=== PATIENT | male | born 1950 | race Hispanic/Latino ===

== ENCOUNTER → 2017-08-13 | Outpatient (CLI) | payer OTHER ==
--- NOTE | 2017-08-13 12:37 | Diagnostic Imaging Report ---
CORRECTION Corrected on: 08/13/2017; Dictated by: Dilshad Colbert M.D. on 08/13/2017 at 12:49 Electronically approved by: Dilshad Colbert M.D. on 08/13/2017 at 12:49 PROCEDURE:FEMUR ONE VIEW LEFT COMPARISON:None. INDICATIONS:LEFT LEG PAIN FINDINGS:See conclusion. CONCLUSION: 1. No acute displaced fracture, dislocation. No lytic or blastic lesion. 2. Very mild degenerative changes in the left knee joint. 3. Soft tissues are unremarkable. Dilshad Colbert M.D. Dictated by: Dilshad Colbert M.D. on 08/13/2017 at 12:45 Electronically approved by: Dilshad Colbert M.D. on 08/13/2017 at 12:45
--- NOTE | 2017-08-13 12:38 | Diagnostic Imaging Report ---
PROCEDURE:HIP LEFT 2-3 VW (+/- PELVIS) COMPARISON:None. INDICATIONS:LEFT LEG PAIN FINDINGS: BONES: Normal mineralization. No acute, displaced fracture or dislocation. No lytic or blastic lesions. Joint spaces are within normal limits. SOFT TISSUES:Negative. OTHER:Nonobstructive bowel gas pattern.. CONCLUSION: No acute abnormalities. Dilshad Colbert M.D. Dictated by: Dilshad Colbert M.D. on 08/13/2017 at 12:46 Electronically approved by: Dilshad Colbert M.D. on 08/13/2017 at 12:46
--- NOTE | 2017-08-13 12:39 | Diagnostic Imaging Report ---
PROCEDURE:X-RAY LEFT LOWER LEG COMPARISON:[facility], DX, FEMUR ONE VIEW LEFT, 08/13/2017, 10:12. INDICATIONS:LEFT LEG PAIN FINDINGS: See conclusion. CONCLUSION: 1. No acute displaced fracture or dislocation. No lytic or blastic lesion. 2. Very mild degenerative changes in the left knee joint. Visualized ankle mortise is unremarkable. 3. Soft tissues are unremarkable. Dilshad Colbert M.D. Dictated by: Dilshad Colbert M.D. on 08/13/2017 at 12:48 Electronically approved by: Dilshad Colbert M.D. on 08/13/2017 at 12:48
== END ==
LOC: RAD 09:40
PROVIDERS: ATTEND Internal Medicine
DX: M79.605 Pain in left leg (principal); M25.552 Pain in left hip; M79.652 Pain in left thigh

== ENCOUNTER → 2017-10-07 | Outpatient (CLI) | payer OTHER ==
--- NOTE | 2017-10-07 19:22 | Diagnostic Imaging Report ---
Bone Scan, delayed phase INDICATION: 66 M with contusion left thigh. Fell from ladder 2 months ago; persistent pain in left thigh x 2 months. Elevated alkaline phosphatase. Has history of rheumatoid arthritis. COMPARISON: None REPORT: Following intravenous administration of 25 mCi of Tc-99m MDP, dynamic flow and immediate blood pool images of the thighs were obtained. Delayed total body images in the anterior and posterior projections and selected spot images were also obtained. The flow images show diffusely symmetric distribution of tracer activity in the thighs with focal increased tracer in the left thigh proximally. Markedly increased tracer is seen in the proximal third of the left femoral diaphysis. More moderately increased tracer is seen in the distal portion of the left femur. Mildly increased tracer is seen in the mid and distal right femoral diaphysis. A round small focal area of increased tracer is seen in the posterolateral aspect of the right 11th rib. Increased tracer is seen in the distal portion of the right clavicle at the acromioclavicular joint. Otherwise, distribution of tracer activity is unremarkable throughout the skeletal system. No abnormal accumulation of tracer is seen in the soft tissues or urinary tract. IMPRESSION: 1. Concern for healing fracture in the proximal aspect of the left femoral diaphysis. Traumatic change is also noted in the distal left femoral diaphysis. Changes in the right femur may represent remote post-traumatic change, less likely recent trauma and cannot exclude subacute fracture. 2. Healing fracture in the right 11th rib. 3. Changes in the right clavicle at the AC joint may be degenerative and/or post-traumatic. Signed by: Dr. Laine Fang M.D. on 10/07/2017 7:18 PM
== END ==
LOC: NM 08:18
PROVIDERS: ATTEND Specialist
DX: S70.12XA Contusion of left thigh, initial encounter (principal)
CPT/HCPCS: 78306; A9503

== ENCOUNTER 2017-11-22 17:24 | Inpatient (IN) | payer OTHER ==
[~2017-11-22] VITALS: Ht 162.6 cm; Wt 86.8 kg
--- OUTSIDE RECORDS SUMMARY | 2017-11-22 17:28 | XMS REPORT ---
Author Author [facility] Address Unknown Phone Unavailable Care Team Providers Care Chip Tuner Name Role Phone GENET CUMMINS Unavailable Unavailable KATIA MARTINEZ Unavailable Unavailable Problems This patient has no known problems. Allergies, Adverse Reactions, Alerts This patient has no known allergies or adverse reactions. Medications This patient has no known medications. Results Test Description Test Time Test Comments Text Results Atomic Results Result Comments BONE and/or JOINT WHOLE BODY [place] [address] Patient Name: AIZZA VERA MR #: [id number] : 1950 Age/Sex: 66/M Req #: [id number] [facility] Physician: Ordered by: GENET CUMMINS MD Report #: [id number] Location: [place] Room/Bed: Procedure: [id number] NM/BONE and/or JOINT WHOLE BODY Exam Date: 10/07/17 Exam Time: 0845 REPORT STATUS: Signed Bone Scan, delayed phase INDICATION: 66 M with contusion left thigh. Fell from ladder 2 months ago; persistent pain in left thigh x 2 months. Elevated alkaline phosphatase. Has history of rheumatoid arthritis. COMPARISON: None REPORT: Following intravenous administration of 25 mCi of Tc-99m MDP, dynamic flow and immediate blood pool images of the thighs were obtained. Delayed total body images in the anterior and posterior projections and selected spot images were also obtained. The flow images show diffusely symmetric distribution of tracer activity in the thighs with focal increased tracer in the left thigh proximally. Markedly increased tracer is seen in the proximal third of the left femoral diaphysis. More moderately increased tracer is seen in the distal portion of the left femur. Mildly increased tracer is seen in the mid and distal right femoral diaphysis. A round small focal area of increased tracer is seen in the posterolateral aspect of the right 11th rib. Increased tracer is seen in the distal portion of the right clavicle at the acromioclavicular joint. Otherwise, distribution of tracer activity is unremarkable throughout the skeletal system. No abnormal accumulation of tracer is seen in the soft tissues or urinary tract. IMPRESSION: 1. Concern for healing fracture in the proximal aspect of the left femoral diaphysis. Traumatic change is also noted in the distal left femoral diaphysis. Changes in the right femur may represent remote post- traumatic change, less likely recent trauma and cannot exclude subacute fracture. 2. Healing fracture in the right 11th rib. 3. Changes in the right clavicle at the AC joint may be degenerative and/or post-traumatic. Signed by: Dr. Sandra Fang M.D. on 10/07/2017 7:18 PM Dictated By: SANDRA FANG MD 17 Transcribed By: PAULO on 10/07/171917 COPY TO: GENET CUMMINS MD FEMUR ONE VIEW LEFT [place] [address] Patient Name: AZIZA VERA MR #: [id number] : 1950 Age/Sex: 66/M Req # : [id number] Adm Physician: Ordered by: KATIA MARTINEZ MD Report #: [id number] Location: [facility] Room/Bed: Procedure: [id number] DX/FEMUR ONE VIEW LEFT Exam Date: Exam Time: REPORT STATUS: Signed CORRECTION Corrected on: 08/13/2017; Dictated by : Jacqueline Colbert M.D. on 08/13/2017 at 12:49 Electronically approved by: Jacqueline Colbert M.D. on 08/13/2017 at 12:49 PROCEDURE: FEMUR ONE VIEW LEFT COMPARISON: None. INDICATIONS: LEFT LEG PAIN FINDINGS: See conclusion. CONCLUSION: 1. No acute displaced fracture, dislocation. No lytic or blastic lesion. 2. Very mild degenerative changes in the left knee joint. 3. Soft tissues are unremarkable. Jacqueline Colbert M.D. Dictated by: Jacqueline Colbert M.D. on 08/13/2017 at 12:45 Electronically approved by: Jacqueline Colbert M.D. on 08/13/2017 at 12:45 Dictated By: JACQUELINE COLBERT MD 124 Transcribed By: CECI on 08/13/17 1249 COPY TO: KATIA MARTINEZ MD HIP LEFT 2-3 VW (+/- PELVIS) [place] [address] Patient Name: AZIZA VERA MR #: [id number] : 1950 Age/Sex: 66/M Req #: [id number] Adm Physician: Ordered by: KATIA MARTINEZ MD Report #: [id number] Location: [facility] Room/Bed: Procedure: [id number] DX/HIP LEFT 2-3 VW (+/- PELVIS) Exam Date: Exam Time: REPORT STATUS: Signed PROCEDURE: HIP LEFT 2 -3 VW (+/- PELVIS) COMPARISON: None. INDICATIONS: LEFT LEG PAIN FINDINGS: BONES: Normal mineralization. No acute, displaced fracture or dislocation. No lytic or blastic lesions. Joint spaces are within normal limits. SOFT TISSUES: Negative. OTHER: Nonobstructive bowel gas pattern.. CONCLUSION: No acute abnormalities. Jacqueline Colbert M.D. Dictated by: Jacqueline Colbert M.D. on 2017 at 12:46 Electronically approved by: Jacqueline Colbert M.D. on 07/2018 at 12:46 Dictated By: JACQUELINE COLBERT MD 1246 Transcribed By: CECI on 08/13/17 1246 COPY TO: KATIA MARTINEZ MD LOWER LEG LEFT [place] [address] Patient Name: AZIZA VERA MR #: [id number] : 1950 Age/Sex: 66/M Req #: [id number] Adm Physician: Ordered by: KATIA MARTINEZ MD Report #: [id number] Location: [facility] Room/Bed: Procedure: [id number] DX/LOWER LEG LEFT Exam Date: 08/13/17 Exam Time: 1015 REPORT STATUS: Signed PROCEDURE: X-RAY LEFT LOWER LEG COMPARISON: [facility], DX, FEMUR ONE VIEW LEFT, 08/13/2017, 10 :12. INDICATIONS: LEFT LEG PAIN FINDINGS: See conclusion. CONCLUSION: 1. No acute displaced fracture or dislocation. No lytic or blastic lesion. 2. Very mild degenerative changes in the left knee joint. Visualized ankle mortise is unremarkable. 3. Soft tissues are unremarkable. Jacqueline Colbert M.D. Dictated by: Jacqueline Colbert M.D. on 08/13/2017 at 12:48 Electronically approved by: Jacqueline Colbert M.D. on 08/13/2017 at 12:48 Dictated By: JACQUELINE COLBERT MD 1248 Transcribed By: CECI on 08/13/17 1248 COPY TO: KATIA MARTINEZ MD
[2017-11-22 17:46] VITALS: BP 157/73
[2017-11-22 18:00] VITALS: BP 157/73
[2017-11-22] MEDS ORDERED: SODIUM CHLORIDE FLUSH 10 ML SYR INJ PRN (18:00)
[2017-11-22] MEDS ORDERED: ACETAMINOPHEN325 M1 PO (18:05)
[2017-11-22] MEDS ORDERED: diclofenac PO (18:07)
[2017-11-22] MEDS: HYDROCODONE/APAP 10MG-325MG TAB PO PRN (18:40)
[2017-11-22] MEDS ORDERED: ACETAMINOPHEN 325 MG TAB PO PRN (18:45)
[2017-11-22 18:47] LABS: BASOPHILS % 0.3 % (0.0-1.0); EOSINOPHILS # (AUTO) 0.1 (0.0-0.4); EOSINOPHILS % 0.8 % (0.0-6.0); HEMATOCRIT 34.7 % (38.2-49.6); HEMOGLOBIN 11.1 g/dL (14.0-18.0); LYMPHOCYTES # (AUTO) 1.2 (1.0-3.2); LYMPHOCYTES % 10.6 % (18.0-39.1); MEAN CORPUSCULAR HEMOGLOBIN 26.3 pg (28-32); MEAN CORPUSCULAR VOLUME 82.2 fL (81-99); MONOCYTES # (AUTO) 0.8 (0.2-0.8); MONOCYTES % 6.9 % (4.4-11.3); NEUTROPHILS # (AUTO) 9.3 (2.1-6.9); NEUTROPHILS % 80.7 % (38.7-80.0); PLATELET COUNT 404 x10e3/uL (140-360); RED BLOOD COUNT 4.22 x10e6/uL (4.3-5.7); RED CELL DISTRIBUTION WIDTH 16.1 % (11.7-14.4)
[2017-11-22 18:57] LABS: INR 1.19; PROTHROMBIN TIME 14.2 seconds (11.9-14.5)
[2017-11-22 19:04] LABS: ALANINE AMINOTRANSFERASE 59 IU/L (0-55); ALBUMIN 3.3 g/dL (3.5-5.0); ALBUMIN/GLOBULIN RATIO 0.7 (0.8-2.0); ALKALINE PHOSPHATASE 153 IU/L (40-150); ANION GAP 14.1 mmol/L (8-16); BLOOD UREA NITROGEN 14 mg/dL (7-26); BUN/CREATININE RATIO 19 (6-25); CALCIUM 10.5 mg/dL (8.4-10.2); CARBON DIOXIDE 27 mmol/L (22-29); CHLORIDE 100 mmol/L (98-107); CREATININE, SERUM 0.75 mg/dL (0.72-1.25); EST GLOMERULAR FILTRATION RATE > 60 ML/MIN (60-); GLUCOSE 102 mg/dL (74-118); POTASSIUM 4.1 mmol/L (3.5-5.1); SODIUM 137 mmol/L (136-145)
[2017-11-22 20:00] VITALS: BP 125/68
[2017-11-23] VITALS (7 sets, daily range): BP systolic 126–146; BP diastolic 67–76
[2017-11-23] MEDS: HYDROCODONE/APAP 10MG-325MG TAB PO PRN (01:35)
[2017-11-23] MEDS ORDERED: ZOLPIDEM TARTRATE 5 MG TAB PO PRN (05:15)
[2017-11-23] MEDS: HYDROMORPHONE 1MG/1ML INJ IV PRN ×2 (06:20→14:05)
[2017-11-23] MEDS: DICLOFENAC SOD 50 MG TAB PO SCH ×2 (08:53→17:00)
[2017-11-23] MEDS ORDERED: IOPAMIDOL 370 MG/ML 200 ML INFUS..BTL INJ ONE (13:40)
[2017-11-23] MEDS ORDERED: SODIUM CHLORIDE 0.9% 50ML 50 ML ONE (13:40)
--- NOTE | 2017-11-23 15:25 | Diagnostic Imaging Report ---
EXAMINATION: CT of the chest, abdomen and pelvis with contrast. TECHNIQUE: Spiral CT images of the chest, abdomen and pelvis were performed from the lung apices to the lesser trochanters after the intravenous administration of 100 cc of Isovue-370 and the oral administration of water. Coronal and sagittal reformatted images were obtained. DLP: 1003.70 mGy-cm COMPARISON: None. CLINICAL HISTORY: Lytic process involving the left femur; evaluation for primary cancer. DISCUSSION: CHEST: LINES/TUBES: None. LUNGS AND AIRWAYS: The lungs and airways are normal with no focal abnormality demonstrated. No pulmonary mass. PLEURA: The pleural spaces are clear. HEART AND MEDIASTINUM: The thyroid gland is normal. The heart and pericardium are within normal limits. LYMPH NODES: Prominent lymph nodes in the right axilla are also present. BONES AND SOFT TISSUES: Lytic destructive process involving the right scapula and the acromium. There is also a lytic process involving the right humeral neck/head. ABDOMEN/PELVIS: HEPATOBILIARY:No focal hepatic mass. No biliary ductal dilation. The gallbladder is normal. SPLEEN: No splenomegaly. No splenic mass PANCREAS: No focal masses or ductal dilatation. ADRENALS: No adrenal nodules. KIDNEYS/URETERS: No hydronephrosis, stones or solid mass lesions. PELVIC ORGANS/BLADDER: The bladder is normal. PERITONEUM/RETROPERITONEUM: Mesenteric mass/lymphadenopathy with stranding of the mesenteric fat at a similar level where there is retroperitoneal adenopathy around the aorta and IVC. LYMPH NODES: There is retroperitoneal lymphadenopathy and left iliac lymph node chain adenopathy. Retroperitoneal adenopathy begins at a level below the takeoff of the SMA and extends past the aortic bifurcation. VESSELS: The celiac trunk,superior and inferior mesenteric and bilateral renal arteries are patent The portal, superior mesenteric and splenic veins are patent. GI TRACT: No distention or wall thickening. BONES AND SOFT TISSUES: Lytic destructive process involving the proximal left femur is only partially visualized. There is cortical breakthrough with periosteal reaction and a small soft tissue component. IMPRESSION: 1. Lytic bone lesions as described above automotive sales representative of metastatic disease. 2. No obvious solid organ mass within the abdomen. No pulmonary mass. 3. Retroperitoneal lymphadenopathy and mesenteric mass may be related to lymphoma although the osseous lesions are not the typical permeative pattern. Signed by: Dr. Jake Medina DO on 11/23/2017 3:21 PM
[2017-11-24] VITALS (8 sets, daily range): BP systolic 117–131; BP diastolic 64–89
[2017-11-24] MEDS: HYDROCODONE/APAP 10MG-325MG TAB PO PRN ×2 (07:45→16:43)
[2017-11-24] MEDS: DICLOFENAC SOD 50 MG TAB PO SCH ×2 (08:31→16:43)
[2017-11-24] MEDS ORDERED: PAMIDRONATE DISODIUM 30 MG/VIAL IV ONE (09:00)
[2017-11-24] MEDS ORDERED: PAMIDRONATE DISODIUM 30 MG in SODIUM CHLORIDE 0.9% 250ML 250 ML IV SCH (10:00)
--- NOTE | 2017-11-24 10:08 | Consultation ---
DATE OF CONSULTATION: November 24, 2017 CHIEF COMPLAINT: Left thigh pain and left knee pain. HISTORY OF PRESENT ILLNESS: This patient is a 66-year-old patient, who is well known to us. He originally presented to our office on September 08, 2017, complaining of left leg pain. The patient states he originally fell from a step ladder when missing the last step, and he felt immediate pain in the left leg. He was initially treated with tramadol and meloxicam. His initial x-rays showed no acute changes but advanced arthritis in the knee. He was subsequently re-evaluated on October 08, 2017. He had a bone scan, which showed increased uptake in the left proximal femur. Repeat x-rays showed a lytic lesion in the left femur. He was sent for an MRI. The MRI showed an enhancing lytic lesion with cortical breakthrough. There were also beginnings of a smaller lesion in the right femur. After some discussion, we elected to get him admitted to the hospital under his primary care physician for a full workup and consult with the oncologist. PAST MEDICAL HISTORY: High cholesterol. No past medical history of cancer. SURGICAL HISTORY: Left knee arthroscopy in 2009. SOCIAL HISTORY: The patient denies smoking or drinking. He is . He is retired. FAMILY HISTORY: High blood pressure. No family history of cancer. CURRENT MEDICATIONS: He only takes Tylenol. ALLERGIES: NO KNOWN DRUG ALLERGIES. PHYSICAL EXAMINATION: In general, he appears healthy in appearance. He does not appear clinically ill. He is well nourished. We did not attempt ambulation. He has painful passive range of motion of the left hip. He has fluid and painless passive range of motion of the right hip. Distal motor and sensory exams are grossly normal. IMAGING: Current CT scans of the chest and abdomen show no apparent malignant mass. He has lymphadenopathy in the mesenteric area as well as the right axilla. ASSESSMENT AND PLAN: This is a 66-year-old male with a metastatic lytic lesion in the left femur. The etiology of the metastatic lesion is unclear. The working diagnosis at this time is non-Hodgkin lymphoma, though this does not typically result in bony metastases that are lytic in nature. He currently has a consult with Dr. Rico, who will review his findings and determine further care. From an orthopedics perspective, I explained that we are concerned about a pathologic fracture in the left proximal femur. I made him nonweightbearing for now. He will likely need to consider a prophylactic nail in the near future. We would like to further understand the etiology of his bony metastases before proceeding. We will continue to follow him at this time, awaiting further direction from internal medicine and oncology. Thank you for this consultation. Dictated by Steven Diallo PA-C. Job#: [id number] EUNICE
[2017-11-24] MEDS ORDERED: CEFAZOLIN SOD 1 GM VIAL IV SCH (16:45)
[2017-11-24] MEDS ORDERED: CEFAZOLIN SOD 1 GM/NS 50ML 100 ML IV SCH (16:45)
[2017-11-25] VITALS (8 sets, daily range): BP systolic 126–139; BP diastolic 70–77
[2017-11-25] MEDS: HYDROMORPHONE 1MG/1ML INJ IV PRN (05:11)
--- NOTE | 2017-11-25 07:16 | Diagnostic Imaging Report ---
PROCEDURE:BONE SURVEY COMP INDICATION:Suspected myeloma COMPARISON:None. FINDINGS: Calvarium: Intact, no lytic lesions Cervical spine: Multilevel degenerative disc changes. Normal alignment. No destructive lesions. Hands: No osseous destructive lesions. Scattered metacarpophalangeal and interphalangeal degenerative changes bilaterally. Chest: Lungs are reasonably well inflated and without consolidation. Prominent mediastinal fat with otherwise normal heart size. No pulmonary edema. No destructive lesions of the visualized ribs Feet: No destructive lesions. Pelvis: No osseous destructive lesions. Left femur: 8 cm ill-defined lytic lesion with a wide zone of transition within the medullary space of the proximal diaphysis, with associated cortical breakthrough and periosteal reaction as partially visualized on comparison CT examination. Right femur: Intact. No destructive lesions. Thoracolumbar spine: Multilevel degenerative disc changes. Normal alignment. No destructive lesions. Left lower leg: Tibia and fibula are intact. No osseous destructive lesions. Right lower leg: Tibia and fibula are intact. No osseous destructive lesions. Right upper arm: Expansile lytic lesion with a wide zone of transition involving the acromion process of the scapula with associated cortical breakthrough and periosteal reaction. 4.8 cm lytic lesion of the lateral aspect of the proximal right humerus, though without cortical breakthrough or periosteal reaction. Right forearm: Radius and ulna are intact. No osseous destructive lesions. Left upper arm: Humerus is intact. No osseous destructive lesions Left forearm: Radius and ulna are intact. No osseous destructive lesions. CONCLUSION: Lytic lesions involving the proximal left femoral diaphysis, right acromion process, and right proximal humerus. Differential diagnosis includes metastatic disease, lymphoma, or myeloma. Dictated by: Tommy Lopez M.D. on 11/25/2017 at 7:17 Electronically approved by: Tommy Lopez M.D. on 11/25/2017 at 7:17
[2017-11-25] MEDS: DICLOFENAC SOD 50 MG TAB PO SCH ×2 (08:48→16:28)
[2017-11-25] MEDS: SODIUM CHLORIDE 0.9% 1000ML 1,000 ML IV SCH ×2 (11:52→21:52)
[2017-11-25] MEDS ORDERED: HYDROCODONE/APAP 5MG-325MG TAB PO PRN (12:00)
[2017-11-25] MEDS ORDERED: ZOLPIDEM TARTRATE 5 MG TAB PO PRN (12:00)
[2017-11-25] MEDS ORDERED: ACETAMINOPHEN 650 MG SUPP PR PRN (12:00)
[2017-11-25] MEDS ORDERED: KETOROLAC TROMETHAMINE 30 MG/ML VIAL IV PRN (12:00)
[2017-11-25] MEDS ORDERED: DOCUSATE SODIUM 100 MG CAP PO PRN (12:00)
[2017-11-25] MEDS ORDERED: PROMETHAZINE HCL (IM) 25 MG/ML VIAL INJ PRN (12:00)
[2017-11-25] MEDS ORDERED: DIPHENHYDRAMINE HCL INJ 50 MG/ML VIAL IM/IV PRN (12:00)
[2017-11-25] MEDS: ACETAMINOPHEN 1000 MG/100 ML IV SCH ×3 (12:00→23:59)
[2017-11-25] MEDS ORDERED: HYDROCODONE/APAP 7.5MG-325MG 1 EA TAB PO PRN (12:00)
[2017-11-25] MEDS ORDERED: ONDANSETRON HCL INJ 2 MG/ML VIAL IV PRN (12:00)
[2017-11-25] MEDS ORDERED: FENTANYL CITRATE/PF 100MCG/2 ML INJ ONE ×2 (12:44→17:33)
[2017-11-25] MEDS ORDERED: CEFAZOLIN SOD 1 GM/NS 50ML 50 ML IV SCH (14:00)
[2017-11-25] MEDS: CEFAZOLIN SOD 1 GM VIAL IV SCH ×2 (14:04→22:00)
--- NOTE | 2017-11-25 14:20 | Operative Report ---
DATE OF PROCEDURE: November 25, 2017 __ASSISTANT: Steven Diallo PA-C __The patient was brought to the operating room for induction of anesthesia. Throughout this case, my PA's assistance was necessary for retraction of soft tissue and positioning of the extremity. This allows for efficient and technically successful execution of the operation and is considered medically necessary. PREOPERATIVE DIAGNOSIS: Metastatic cancer with impending pathologic fracture left proximal femur. POSTOPERATIVE DIAGNOSIS: Metastatic cancer with impending pathologic fracture left proximal femur. PROCEDURE: Left femur intramedullary biopsy and placement of intramedullary nail. INDICATIONS: The patient is a 66-year-old gentleman who was otherwise in his usual health until about 2 months ago. He fell backwards and noted some increased pain in his left femur. Initial x-rays were negative. Followup x-rays roughly 1 month later showed a lytic lesion in the upper femur. He has been worked up for metastatic cancer. He shows early lesions in his right femur, right proximal humerus and clavicle. The findings have been discussed with the patient. We plan on an intramedullary biopsy and placement of a prophylactic intramedullary nail. The risks and benefits were explained. The patient and his family all state they understand and wish to proceed. DESCRIPTION OF PROCEDURE: The patient was brought to the operating room and placed under general anesthetic. He received prophylactic antibiotics in the holding area. He was positioned on the fracture table. Meticulous care and time were taken to avoid propagating the impending fracture. A C-arm image intensifier was used to confirm satisfactory positioning for the surgery. A preoperative time out was performed. The hip was prepped and draped in a sterile manner. A small incision was made proximal to the greater trochanter. A curved awl was used to establish entry to the intramedullary canal. A guide pin was placed and confirmed in the AP and lateral plane. The proximal reamer was used to open up the femoral canal. A large curved curet was used to obtain samples from the intramedullary lesion. This had a white, somewhat fatty appearance. This was preserved for specimen to be sent to the pathologist. The femur was then over-reamed to 12.5 mm. Good endosteal clatter was encountered at this level. A [employer] Aff[employer] intramedullary nail system was used. An 11 mm x 360 mm left nail was placed. The proximal screw angle was 125 degrees. A 95 mm x 10.5 mm lag screw was placed. Good positioning was checked in the AP and lateral plane. Distal interlocking screws were placed. Final x-rays confirmed good positioning of the hardware, no propagation of the fracture or other abnormalities. All of the wounds were irrigated and closed. Subcuticular Vicryl and jordyn were used to close the skin. The deep fascia was closed with 2-0 Vicryl. The patient was placed into a sterile bandage and extubated. He was transported to the recovery room in stable condition. Blood loss was less than 50 mL, and all needle and sponge counts were correct. Job#: [id number] EV
[2017-11-25] MEDS: HYDROCODONE/APAP 10MG-325MG TAB PO PRN ×2 (16:15)
[2017-11-25] MEDS: ASPIRIN 325 MG TAB PO SCH (16:28)
[2017-11-25] MEDS: CELECOXIB 100 MG CAP PO SCH (16:28)
[2017-11-25] MEDS ORDERED: LIDOCAINE HCL 2% LOCAL INJ 5 ML SDV VIAL INJ ONE (17:16)
[2017-11-25] MEDS ORDERED: DEXAMETHASONE SOD PHOS INJ 4 MG/ML VIAL ONE (17:16)
[2017-11-25] MEDS ORDERED: PROPOFOL IV EMULSION 10 MG/ML 20 ML VIAL ONE (17:16)
[2017-11-25] MEDS ORDERED: ONDANSETRON HCL INJ 2 MG/ML VIAL ONE (17:16)
[2017-11-25] MEDS ORDERED: SEVOFLURANE INHAL SOLN 250 ML PEN BTL ONE (17:16)
[2017-11-25] MEDS ORDERED: KETOROLAC TROMETHAMINE 30 MG/ML VIAL ONE (17:16)
[2017-11-25] MEDS ORDERED: MIDAZOLAM HCL 2 MG/2 ML VIAL ONE (17:33)
[2017-11-26] VITALS (7 sets, daily range): BP systolic 107–124; BP diastolic 61–71
[2017-11-26] MEDS: ACETAMINOPHEN 1000 MG/100 ML IV SCH (06:00)
[2017-11-26] MEDS: CEFAZOLIN SOD 1 GM VIAL IV SCH (06:00)
[2017-11-26 07:13] LABS: HEMATOCRIT 31.5 % (38.2-49.6); HEMOGLOBIN 10.1 g/dL (14.0-18.0)
[2017-11-26 07:48] LABS: ALANINE AMINOTRANSFERASE 93 IU/L (0-55); ALBUMIN 2.8 g/dL (3.5-5.0); ALBUMIN/GLOBULIN RATIO 0.6 (0.8-2.0); ALKALINE PHOSPHATASE 150 IU/L (40-150); ANION GAP 13.2 mmol/L (8-16); BLOOD UREA NITROGEN 18 mg/dL (7-26); BUN/CREATININE RATIO 24 (6-25); CALCIUM 9.1 mg/dL (8.4-10.2); CARBON DIOXIDE 27 mmol/L (22-29); CHLORIDE 100 mmol/L (98-107); CREATININE, SERUM 0.74 mg/dL (0.72-1.25); EST GLOMERULAR FILTRATION RATE > 60 ML/MIN (60-); GLUCOSE 142 mg/dL (74-118); POTASSIUM 4.2 mmol/L (3.5-5.1); SODIUM 136 mmol/L (136-145)
[2017-11-26] MEDS: SODIUM CHLORIDE 0.9% 1000ML 1,000 ML IV SCH ×2 (07:52→17:52)
[2017-11-26] MEDS: DICLOFENAC SOD 50 MG TAB PO SCH ×2 (09:30→18:00)
[2017-11-26] MEDS: ASPIRIN 325 MG TAB PO SCH ×2 (09:30→18:00)
[2017-11-26] MEDS: CELECOXIB 100 MG CAP PO SCH ×2 (09:30→18:00)
--- NOTE | 2017-11-26 10:40 | Consultation ---
DATE OF CONSULTATION: November 24, 2017 Mr. Doe is a 66-year-old male who had presented with pain in the hip. 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 Subsequently, was referred to me for further evaluation. History of having had pain in the left lower extremity. The patient as per the notes of the orthopedic surgeon reveals that he presented to the office on September 08, 2017, complaining of left leg pain. The patient claims that he had fallen from a stepladder. The patient was treated with analgesics. Initial x-rays were reported negative. He was evaluated again on October 08, 2017. There was a bone scan which showed a uptake in the left proximal femur. Repeat x-ray shows a lytic lesion. Subsequently, the patient was sent for an MRI, which confirmed the lytic lesion. History of hyperlipidemia, history of left knee laparoscopy in 2009. SOCIAL HISTORY: Noncontributory. FAMILY HISTORY: Noncontributory. ALLERGIES: REPORTED NONE. MEDICATIONS: At this time, sodium chloride, Tylenol with hydrocodone, hydromorphone, Diclofenac, Ambien. REVIEW OF SYSTEMS HEENT: Normal. CARDIAC: History of hyperlipidemia. RESPIRATORY: Normal. GI: Normal. : Normal. MUSCULOSKELETAL: Pain in the left femur. NEUROENDOCRINE: Essentially normal. PHYSICAL EXAMINATION GENERAL: A moderately built male. Right axillary node soft, 2 cm. HEART: Within normal limits. LUNGS: Clear. ABDOMEN: Obese. There is no hepatosplenomegaly. RECTAL: Deferred. CENTRAL NERVOUS SYSTEM: Essentially normal. EXTREMITIES: Except for pain, essentially normal. LABORATORY DATA: Shows a hemoglobin of 11.1, hematocrit 34.7, MCV 82.2, MCHC 32, RDW 15.1, white count of 11,500, and platelets reported at 404,000. Chemistry shows a sodium of 137, potassium 4.1, chloride 100, CO2 27, BUN 14, creatinine 0.7, calcium high at 10.5. Bilirubin 0.6, SGOT 42, SGPT 59, alkaline phosphatase very high at 153, total protein is high at 8.3. Albumin low at 3.3. Globulins high at 5. IMAGING: The patient had a CT scan of the abdomen and pelvis and was described as mesenteric mass and lymphadenopathy, read by a Dr. Jake Jalloh. I had called personally. He was not available. I had called the radiology department to speak to the physician on-call. I left my phone number for him to call. I was told that he was busy in the cardiac cath. However, I did not get any phone calls. It is extremely important for me to know the size of these lymph nodes to prognosticate. There was also a lytic destructive lesion of the right scapula in the acromion. There was also a lytic process involving the right humeral neck and head. No other lab investigations of interest are available at this time for review, except for the CT of the chest, which did not reveal any mass in the chest. IMPRESSION 1. Anemia of chronic disease. 2. Hypercalcemia. 3. High liver function tests. 4. High alkaline phosphatase. 5. Hyperproteinemia. 6. Hypoalbuminemia. 7. Hyperglobulinemia. 8. Possible myeloma. 9. Lytic destruction of the left femur. 10. Lytic lesion of the right scapula, acromion and right humerus. 11. Possible lymphoma. PLAN, COMMENTS AND SUGGESTIONS: Suggest Aredia at this time. Suggest bone marrow. Suggest quantitation of immunoglobulins. Suggest orthopedic customer service consultant to go through kneeling this lesion in the left femur to avoid a fracture and a biopsy. The whole conversation was recorded by the family. I always of course take a nurse along with me. At this time, one of the daughters questioned if he should go to [facility]. I explained to her that if they are planning to go to [facility] this would be the time to go because they will be redoing everything which I have enumerated at which time the looked at the , asked as to what he wants. He claimed, "Why should I go any other place when I can be taken care of here." I did tell them that if MD Rufino is contemplated, I would step down and to let me know. I asked the nurse to let me know as to if they would go through right axillary node biopsy by Dr. Az Urban, who I was going to consult after obtaining an okay from Dr. Huynh. Also, to arrange for a bone marrow biopsy. However, I did not hear from them on the following day. It has to be noted that lymphoma does not behave usually this way. It does not cause lytic lesions of the bone. Multiple myeloma on the other hand does this. It also has to be noted that multiple myeloma with lymphadenopathy also has been described. However, a bone marrow biopsy fixing this lesion, biopsy of the axillary node is extremely important. Aredia was prescribed for the hypercalcemia. Thank you very much for allowing me to participate in management of this patient during this hospitalization. I do not know what the patient or the family wants. I usually do not get involved in people who want a 2nd opinion as I feel that they will never be happy as the treatment would involve fairly aggressive chemotherapy with multiple side effects. Job#: [id number] RI cc:MD KATIA MCCOY MD
[2017-11-26] MEDS ORDERED: ACETAMINOPHEN 1000 MG/100 ML IV PRN (12:00)
[2017-11-26] MEDS ORDERED: ONDANSETRON HCL 4 MG ORAL DISINTEGRATING TAB PO PRN (21:15)
[2017-11-27] VITALS: BP_SYST 111; BP_SYST 118; BP_DIAS 57; BP_DIAS 68
[2017-11-27] MEDS: SODIUM CHLORIDE 0.9% 1000ML 1,000 ML IV SCH (03:52)
[2017-11-27 04:00] VITALS: BP 114/65
[2017-11-27 07:27] LABS: HEMATOCRIT 31.3 % (38.2-49.6); HEMOGLOBIN 9.8 g/dL (14.0-18.0)
[2017-11-27 07:40] VITALS: BP 134/80
[2017-11-27] MEDS: DICLOFENAC SOD 50 MG TAB PO SCH (09:30)
[2017-11-27] MEDS: ASPIRIN 325 MG TAB PO SCH (09:30)
[2017-11-27] MEDS: CELECOXIB 100 MG CAP PO SCH (09:30)
[2017-11-27 10:42] VITALS: BP 134/80
[2017-11-27 16:02] VITALS: BP 104/64
== END 2017-11-27 15:47 | DRG 478 ==
LOC: MED/SURG3 17:24 → MED/SURG 11-25 13:38
PROVIDERS: ADMIT Internal Medicine; ATTEND Internal Medicine
PROC: 0QB Lower Bones, Excision (ICD-10-PCS; 2017-11-25)
PROC: 0QH706Z Insertion of Intramedullary Internal Fixation Device into Left Upper Femur, Open Approach (ICD-10-PCS; principal; 2017-11-25 10:49)
DX: M84.559A Pathological fracture in neoplastic disease, hip, unspecified, initial encounter for fracture (principal); C79.51 Secondary malignant neoplasm of bone; C85.90 Non-Hodgkin lymphoma, unspecified, unspecified site; E83.52 Hypercalcemia; E77.8 Other disorders of glycoprotein metabolism; E88.09 Other disorders of plasma-protein metabolism, not elsewhere classified; E83.39 Other disorders of phosphorus metabolism; C80.1 Malignant (primary) neoplasm, unspecified; D63.8 Anemia in other chronic diseases classified elsewhere
CPT/HCPCS: 36415; 36600; 71260; 74177; 76000; 77075; 80053; 82784; 83735; 85014; 85018; 85025; 85610; 86850; 86900; 88304; 88307; 88311; 97139; C1713; J0690; J1100; J1170; J1885; J2001; J2250; J2405; J2430; J7030; J7050; Q9967